=== PATIENT | female | born 1995 | race Native Hawaiian/Other Pacific Islander ===

== ENCOUNTER 2017-10-24 08:38 | Outpatient (CLI) | payer OTHER | END 2017-10-24 19:35 | disposition home or self-care (01) | LOC: US 08:38 | DX: E03.8 Other specified hypothyroidism (principal) ==

== ENCOUNTER 2017-11-22 08:43 | Outpatient (CLI) | payer OTHER | END 2017-11-22 16:00 | disposition home or self-care (01) | LOC: US 08:43 | DX: R94.5 Abnormal results of liver function studies (principal) ==